=== PATIENT | female | born 1995 | race Caucasian/White ===

== ENCOUNTER 2023-07-13 10:15 | Outpatient (CLI) | payer BC, SELFPAY | END 2023-07-13 10:16 | disposition home or self-care (01) | LOC: NFLDREF 07-15 11:33 | PROVIDERS: Visit Provider Advanced Practice Midwife | DX: Z34.83 Encounter for supervision of other normal pregnancy, third trimester (principal); Z3A.35 35 weeks gestation of pregnancy | CPT/HCPCS: 87081; 87653 ==

== ENCOUNTER 2023-07-20 14:08 | Outpatient (CLI) | payer BC, SELFPAY ==
[2023-07-21 13:02] LABS: Strep B DNA Probe POSITIVE (Negative)
[2023-07-21 13:03] LABS: Strep B Pen/Amox Allergy No
== END 2023-07-20 14:09 | disposition home or self-care (01) ==
LOC: NFLDREF 14:08
PROVIDERS: Visit Provider Advanced Practice Midwife
DX: Z34.93 Encounter for supervision of normal pregnancy, unspecified, third trimester (principal); Z3A.36 36 weeks gestation of pregnancy
CPT/HCPCS: 87081; 87653

== ENCOUNTER 2023-08-07 15:00 | Inpatient (IN) | payer BC, SELFPAY ==
[2023-08-07] VITALS (18 sets, daily range): BP systolic 113–130; BP diastolic 58–76; PULSE 61–86; RESP 16–17; TEMP 36.6–37.4; O2SAT 96; BMI 39.6
[2023-08-07 14:12] LABS: Amnisure Rom* POSITIVE
[2023-08-07] MEDS: AMPICILLIN 2 GM in 0.9 % SODIUM CHLORIDE Mini-bag 100 ML IVPB (15:05)
--- NOTE | 2023-08-07 16:12 | P.LDBA_ITS ---
Subjective History of Present Illness Date Seen: 08/07/23 Narrative: Mackenzie is a 27 yo at 39 3/7 being admitted to Labor and Delivery for PROM of clear fluid. She reports that she started leaking fluid yesterday but is uncertain timing. She said she worked out around 1pm and had some scant amount of discharge then but she thought it might be urine due to working out. She noticed a small gush later on in the afternoon, possibly around 4 pm. She then had some small amount of leaking here and there and thought it may be more urine. She went to bed and this morning had a bit more but never any larger gushes. She sat down to rest this afternoon and her shorts were wet when she stevan t to stand up. She really has not felt any contractions or cramping. Since arrival she has noted her abdomen becoming firm but not painfully. She reports in her previous delivery she didn't really notice contractions until she was almost 8 cm. She has agreed to start ampicillin for GBS + status. Her full history and physical was dictated by CECILIO Kolb CNM on 07/20/2023. Please see this for details. Specific Issues/Plans : Leroy Declines weights, is a trigger for her. H&P done by NICK Kolb on 07/20/2023 1. Hx vacuum assisted delivery -for distress, only pushed 35 mins 2. GBS +, recommend antibiotics in labor Re-swabbed per patient request, GBS + Undecided about declining treatment Covid: Flu: Tdap: Declines 32wk Mental Health: 06/15/2023 [facility] Prenatals: 12/30/22 Labs: O+, Antibody neg, Hgb 12.6,plts 277, rubella immune, RPR neg, Hep B neg, HIV neg, Urine culture ? no growth. Hep C neg? 05/11/23 Hgb 11.7. 1hr gct 121. ? Pap 1-- NIL, HPV neg? LMP 11/04/22. GIL 08/11/23 by LMP.? Tdap declined? 12/30/22 Viability u/s: 8.0 by LMP, 7.3 by u/s. FHR 133. ? Anatomy scan 03/16 at 18.6 weeks. EFW 30%. No abnormalities identified. 3 vessel cord, no previa, normal insertion? Hx of vacuum assisted delivery at 38.1 weeks? OB - Problem Based A/P Additional Plan (1) PROM with onset of labor more than 24 hours following rupture: Status: Acute (2) Group B Streptococcus carrier, antepartum: Status: Acute (3) History of vacuum extraction assisted delivery: Problem details: For distress, only pushed 35 mins Status: Acute Plan ASSESSMENT:? 27 yo at 39.3 weeks gestation?by LMP complicated by:?hx of vacuum delivery Labor type: Spontaneous, early labor? Category 1 FHR pattern.?? Labor complicated by: PROM >24 hours? GBS positive? ? PLAN:? 1. Routine intrapartum cares as ordered. Reviewed recommendation of pitocin due to PROM >24 hours vs expectant management. Strongly recommended Pitocin, however patient prefers to avoid. Plan expectant management for no longer than 36 hours, pt agrees with plan. Encouraged to do labor warm up, nipple stimulation, rupture forebag after 4 hours ampicillin, and/or membrane sweep to encourage labor. Monitor for changes in labor based on patient status, avoiding cervical exams as much as possible. 2. Monitoring per policy, intermittent? 3. Planning unmedicated . Candidate for analgesia of choice if desired.?? 4. Patient encouraged to reposition and ambulate to promote physiologic labor and .? 5. GBS phrophylaxis initiated for GBS positive status. Will treat with antibiotics per protocol. 6. Anticipate ? Delivery/Labor/Induction Plan Plan: expectant management OB Exam Physical Exam Vital signs: Temp Pulse Resp BP Pulse Ox 98.2 F 64 16 122/74 96 08/07/23 13:45 08/07/23 16:10 08/07/23 13:45 08/07/23 16:10 08/07/23 14:03 Narrative: Vitals Reviewed Constitutional:? Alert and oriented x3 HEENT:? Normocephalic, atraumatic Neck:? Supple Lungs:? Clear to auscultation bilaterally Heart:? Regular rate and rhythm, no murmur, rub or gallop Abdomen:? Soft, nontender, and gravid. Vertex by Lux's, confirmed with cervical exam. Extremities:? No edema or erythema Cervix: 4 cm/70%/-2 station/vertex per RN NST: 130 bpm/moderate variability/15x15 accelerations/no decelerations/contractions every 3-5 minutes Detailed Labor and Delivery Exam Patient Gravid: Yes
[2023-08-07] MEDS: AMPICILLIN 1 GM in 0.9 % SODIUM CHLORIDE Mini-bag 100 ML IVPB (19:04)
--- NOTE | 2023-08-07 21:48 | W.PM.OBVAGDE ---
OB Procedure Vag Delivery Mother Details Mother Details: Mackenzie is a 27 year-old, 2, now Para 2, admitted on 08/07/23 at 39 3/7 weeks gestation. : 2 Para: 2 Weeks Gestation: 39.3 Admission Date: 08/07/23 Additional Details Amniotic Membrane Status: SROM (PROM >24 hours) Amniotic Membrane Rupture Date: 08/06/23 Amniotic Membrane Rupture Time: 16:00 (exact time uncertain) Amniotic Membrane Fluid Description: Clear Analgesia/Anesthesia Type: None Waterbirth: No Pitcoin: No Intrapartal Events: ROM >18 Hours Labor Onset: 19:54 Complete: 21:00 Pushin:00 Heart: heart tones during second stage were auscultated by doppler, reassuring during pushing. Difficult to auscultate during due to and maternal position. Delivery Details Delivery Date: 08/07/23 Delivery Time: 21:20 Route of delivery: Infant Gender: Female Infant Viability: Alive; Heart Rate Present Position at Delivery: OA Delivery Details: Mackenzie was admitted earlier this evening with PROM of clear fluid that likely occurred yesterday (08/06) at about 1600. She was having few irregular contractions on arrival. She was encouraged to try position changes, activity, and nipple stim. After many position changes over a 4 hour, she had a larger gush of fluid followed by regular painful contractions. She progressed normally. She began to have an urge to push and started pushing intermittently at peak of contractions at 2100, she was assumed complete at this time. She began more active pushing while standing, then transitioned to hands and knees on the bed at about 2111. of a viable female at 2119 in hands and knees on the bed. Vertex delivered OA. No nuchal cord or shoulder. Body delivered easily and without incident. Just after delivery, a large gush of fluid splashed into the infants face. Infant was stimulated for a weak cry before being passed between mothers legs into her arms. Mother was assisted to her back on the bed as infant was stimulated, dried, and bulb suction for a vigorous cry. Cord was clamped and cut at > 5 minutes. APGARS were 6 at one minute and 8 at five minutes respectively. Mouth was bulb suctioned. Intact placenta with a 3 vessel cord delivered spontaneously at 2134. Fundus firm. Intact perineum. QBL 50 cc. Mother and baby stable; mother plans to breastfeed. Infant weight pending. She received 2 dose of ampicillin for adequate GBS treatment. 1 Minute Interval Total Score: 6 5 Minute Interval Total Score: 8 Additional Details Shoulder Dystocia: No Placenta Delivery Time: 21:35 Placental Delivery Description: Spontaneous Procedure Done: Global Blood Loss: 50 Laceration: None Blood Loss Measurement Type: QBL Bakri Used: No Cord Vessel Description: 3 Vessels Event Summary Status: Mother and were stable after delivery. Disposition: floor
[2023-08-08 03:53] VITALS: BP 105/63; PULSE 65; RESP 16; TEMP 37.1
[2023-08-08 09:00] VITALS: BP 118/74; PULSE 59; RESP 16; TEMP 36.4
--- NOTE | 2023-08-08 09:16 | PM.OBPNVD1 ---
OB - PN:Subj Subjective Time Seen by Provider: 09:17 Date Seen: 08/08/23 Interval history: Mackenzie is a 27 y.o. who was admitted to L & D for PROM. She had an uncomplicated NVD. Patient comments OB post-: no complaints, pain well controlled, tolerating diet and flatus present [place] infant status: doing well feeding status: exclusively Narrative: The patient feels well. The pain is well controlled with current medications. She has no new complaints. She is breast feeding and reports things are going well.? the patient has done well.? Vitals have been stable.? She has remained afebrile.? Has a good appetite, is tolerating a general diet. She is voiding without difficulty.? She is passing gas and has not had a bowel movement.? She is ambulating and denies any dizziness.? Has Small amount of rubra lochia. OB - PN: Obj Exam Physical Exam: Vital signs: Temp Pulse Resp BP Pulse Ox O2 Del Method 98.7 F 65 16 105/63 96 Room Air 08/08/23 03:53 08/08/23 03:53 08/08/23 03:53 08/08/23 03:53 08/07/23 14:03 08/08/23 03:53 Narrative: GENERAL APPEARANCE: normal affect, alert, no distress MOOD: appropriate HEENT: normocephalic, neck supple, full ROM CHEST: Symmetrical chest wall movement. Normal respiratory effort. Clear to auscultation HEART: regular rate and rhythm ABDOMEN: soft, non-tender. Uterine fundus is firm, at Umbilicus, Midline and is appropriate for the stage of recovery. Bowel sounds present. PERINEUM: mild edema of the perineum, there is no lacerations EXTREMITIES: normal and no edema OB - PN: Obj Data Labs Labs: Laboratory Results - last 24 hr 08/07/23 13:51 Membrane Rupture POSITIVE OB - PN: A/P Delivery Assessment and Plan (1) Normal vaginal delivery: Status: Acute (2) Lactating mother: Status: Acute (3) PROM with onset of labor more than 24 hours following rupture: Status: Acute (4) Group B Streptococcus carrier, antepartum: Status: Acute Plan day: 1 Plan: routine care Comments: G 2 P 2 status post uncomplicated NVD 1. Continue route PP cares 2. . May see if desired 3. Anticipate discharge home tomorrow
[2023-08-08 13:00] VITALS: BP 104/63; PULSE 63; RESP 16; TEMP 36.3
[2023-08-08 17:30] VITALS: BP 112/73; PULSE 56; RESP 16; TEMP 36.8
[2023-08-08 19:45] VITALS: BP 108/63; PULSE 73; RESP 16; TEMP 36.8
[2023-08-09 04:00] VITALS: BP 90/60; PULSE 62; RESP 16; TEMP 36.4; O2SAT 95
[2023-08-09 08:11] VITALS: BP 113/69; PULSE 62; RESP 14; TEMP 36.6; O2SAT 97
--- NOTE | 2023-08-09 08:56 | PM.OBDSVD1 ---
DS: Providers Provider Date Seen: 08/09/23 Date of admission: 08/07/23 15:00 Primary care physician: Not a Local Provider Admitting Clinician: Marli Borja CNM Attending Physician on discharge: Marli Borja CNM Date of Discharge: 08/09/23 DS: Diagnosis Discharge Diagnosis (1) Lactating mother: Status: Acute (2) care following vaginal delivery: Status: Acute (3) PROM with onset of labor more than 24 hours following rupture: Status: Acute Exam Narrative: Exam Narrative: GENERAL APPEARANCE:? normal affect, alert, no distress? MOOD:? appropriate? CHEST:? clear to auscultation and percussion? HEART:? regular rate and rhythm? ABDOMEN:? soft, non-tender the uterine fundus is 2 cm Below Umbilicus, Midline and is appropriate for the stage of recovery. ? PERINEUM:? mild edema of the perineum, there is an intact perineum that is healing well.? EXTREMITIES:? normal and no edema? Patient has no complaints? No active bleeding?? Doing well? She is requesting discharge home.? Const: Vital Signs, click to edit/add: Vital Signs - 24 hr 08/08/23 09:00 08/08/23 13:00 08/08/23 17:30 Temperature 97.6 F 97.4 F L 98.3 F Pulse Rate [Blood Pressure Cuff] 59 L 63 56 L Respiratory Rate 16 16 16 Blood Pressure [Ri ght Arm] 118/74 104/63 112/73 Pulse Oximetry Oxygen Delivery Me thod Room Air Room Air Room Air 08/08/23 19:45 08/09/23 04:00 08/09/23 08:11 Temperature 98.2 F 97.5 F L 97.8 F Pulse Rate [Blood Pressure Cuff] 73 62 62 Respiratory Rate 16 16 14 Blood Pressure [Ri ght Arm] 108/63 90/60 113/69 Pulse Oximetry 95 97 Oxygen Delivery Me thod Room Air Room Air Room Air Documenting provider has reviewed patient's vital signs: yes OB - DS: Summary Hospital Course Hospital Course: The patient is a 27 year old G 2 P 2 at 39.3 weeks gestation that was admitted to the Center on 08/07/23 for PROM. She had a vaginal delivery complicated by ROM greater than 24hours without signs of infection. She was adequatly treated with antibiotics for positive GBS status. She delivered a viable female . She is breast feeding. She feels that it is going well but is worried about a tongue or lip tie as her first had this which made latching painful. She is planning to see before discharge today. the patient has done well. She is passing gas but has not had a bowel movement. She is planning condoms for PP control. Peripartum Data Infant delivery method: Vaginal Laceration description: None complications: none Sachse Infant Gender: Female Discharge Plan: Home Status at Discharge Functional status at discharge: independent ambulation Overall status at discharge: patient is progressing back to baseline Time Spent with Patient Time attestation: Total time spent providing and/or coordinating discharge services: Discharge Plan Discharge Disposition: Home, Self-Care Date of Admission: 08/07/23 15:00 Attending Provider on Discharge: Naye Andersen Primary Care Provider: Provider,Not a Local Condition: Stable Anticipated Discharge Date/Time: 08/09/23 10:00 Discharge Medications: New docusate sodium 100 mg Capsule 100 mg PO DAILY Qty: 60 0RF Rx Instructions: Take 1-2 tablets daily as needed for constipation. ibuprofen 600 mg Tablet 600 mg PO Q6H PRNQty: 30 0RF Continued acetaminophen 500 mg capsule 500 mg PO Q6H PRN One A Day Women's DHA 28 mg iron- 800 mcg combo pack 1 pkg PO DAILY cholecalciferol (vitamin D3) 25 mcg (1,000 unit) capsule 25 mcg PO QDAY Discharge Orders: Discharge Order (Routine); Ordered 08/09/23 Ordered By: Naye Andersen Patient Education: OB Vaginal/Breast Feeding Additional Instructions: Discharge instructions were reviewed with the patient including signs and symptoms of infection and home going medications.? Lifting Restrictions: 20 pounds for 6? weeks? ?? Do not drive while taking narcotic pain meds.? Off Work or School for 6 weeks.? ?? Symptoms to report to doctor:? -Bleeding that saturates more than one pad per hour? -Passing clots larger than the size of a golf ball? -Pain not relieved by prescribed medication? -Fever above 100.4 degrees Fahrenheit? -A foul vaginal odor? -Difficulty in emotions, mood and functions? -Thoughts of hurting yourself and/or ? -Painful, reddened area in your breast? -Any drainage, redness or tenderness in your IV/epidural site? -Severe headache that doesn't improve after taking medications? -Changes in vision, including temporary loss of vision, blurred vision, and/or light sensitivity? -Upper abdominal pain (usually under ribs on the right side)? -Decrease in urination or painful, frequent urinating? -Chest pain? -Shortness of breath? -Tenderness or pain with redness and/swelling in the calf(s) of your leg? ?? Follow Up in clinic in 2 and 6 weeks.? ?? consultation services are available to all mothers and babies for the first year after delivery.? To make an appointment, please call [phone].? Activity Level: Activity as Tolerated Discharge Diet: Regular Follow Up Appointments: [facility] [Provider Group] Provider,Not a Local [Primary Care Provider] - Forms: MyHealth Info Instructions
== END 2023-08-09 11:00 | disposition home or self-care (01) | DRG 560 ==
LOC: OB OUT 15:01 → OB 15:02
PROVIDERS: Admitting Provider Advanced Practice Midwife; Visit Provider Advanced Practice Midwife
DX: O42.12 Full-term premature rupture of membranes, onset of labor more than 24 hours following rupture (principal); O99.824 Streptococcus B carrier state complicating childbirth; Z3A.39 39 weeks gestation of pregnancy; Z37.0 Single live birth
CPT/HCPCS: 84112; J0290

== ENCOUNTER 2024-11-01 13:37 | Outpatient (CLI) | payer BC, SELFPAY ==
--- NOTE | 2024-11-01 13:45 | CRLHL7_ITS ---
For Patients: As a result of the Century Cures Act, medical imaging exams and procedure reports are released immediately into your electronic medical record. You may view this report before your referring provider. If you have questions, please contact your health care provider. INDICATION: Dating and viability. LMP 08/13/2024. COMPARISON: None. TECHNIQUE: Real-time paniagua-scale imaging of the pelvis was performed. FINDINGS: Sonographic imaging demonstrates a single living intrauterine gestation. The embryo has a regular cardiac rate measuring 168 beats per minute. The embryo`s crown-rump length measures 2.9 cm which corresponds to a gestational age of 9 weeks 5 days with sonographic due date 06/01/2025. There is a normal-appearing yolk sac. The placenta has not yet developed. No evidence of a perigestational hemorrhage. The right ovary measures 4.9 x 2.7 x 2.5 cm and the left ovary measures 4.1 x 1.6 x 2.6 cm. Corpus luteal cyst in the right ovary. No free fluid in the pelvic cul-de-sac. IMPRESSION: 1. Single living intrauterine gestation corresponding to an ultrasound gestational age of 9 weeks 5 days with sonographic due date 06/01/2025. 2. The clinical gestational age by LMP is 11 weeks 3 days. Dictated by Jolanta Tariq MD @ 11/02/2024 2:21:40 AM (Electronically Signed)
== END 2024-11-01 13:38 | disposition home or self-care (01) ==
LOC: US 13:38
PROVIDERS: Visit Provider Advanced Practice Midwife
DX: Z34.91 Encounter for supervision of normal pregnancy, unspecified, first trimester (principal); O34.81 Maternal care for other abnormalities of pelvic organs, first trimester; N83.11 Corpus luteum cyst of right ovary; Z3A.09 9 weeks gestation of pregnancy
CPT/HCPCS: 76801; 83021; 86592; 86703; 86704; 86706; 86762; 86787; 86803; 86850; 86900; 86901; 87086; 87340

== ENCOUNTER 2025-01-10 12:39 | Outpatient (CLI) | payer BC, SELFPAY ==
--- NOTE | 2025-01-10 13:00 | CRLHL7_ITS ---
For Patients: As a result of the Century Cures Act, medical imaging exams and procedure reports are released immediately into your electronic medical record. You may view this report before your referring provider. If you have questions, please contact your health care provider. OBSTETRICAL ULTRASOUND ??? ANATOMY SURVEY, 01/10/2025 INDICATION: anatomy survey. CLINICAL HISTORY: GIL by ultrasound: 06/01/2025 Gestational age: 19 weeks 5 days TECHNIQUE: Real-time paniagua-scale imaging of the fetus was performed transabdominal. PREVIOUS ULTRASOUND: 11/01/2024 FINDINGS: position: Multiple positions Cervix: Visualized Technique: Transabdominal Length of closed cervix: 3.7 cm Placenta position: Anterior Placenta tip to internal os: 9.3 cm Umbilical cord: 3-vessel cord Placental insertion: Marginal (within 2 cm of placenta edge) Amniotic fluid: 4.7 cm SDP (greater than/equal to 2 to less than 8 cm) ANATOMY SURVEY: Observed Structures Cerebellum: Yes; 2.1 cm, 21 weeks 2 days Cisterna magna: Yes; 5.9 mm Nuchal fold: Yes; 3.2 mm Lateral ventricle: Yes; 7.2 mm CSP: Yes Midline falx: Yes Choroid plexus: Yes Spine: Yes Stomach: Yes Abdominal cord insert: Yes Urinary bladder: Yes Kidneys: Yes Diaphragm: Yes Nose/lips: Yes Orbital view: Yes Profile: Yes Upper extremities: Yes Lower extremities: Yes Hands: Yes Feet: Yes 4-chamber heart: Yes LVOT: Yes RVOT: Yes 3VV: Yes 3VTV: Yes BIOMETRY BPD: 4.6 cm, 19 weeks 5 days, 51.9% HC: 17.6 cm, 20 weeks 0 days, 59.0% AC: 16.0 cm, 21 weeks 1 day, 86.0% FL: 3.1 cm, 19 weeks 4 days, 37.4% FL/AC: 19.30% HC/AC ratio: 1.10 heart rate: 145 bpm age by this ultrasound: 20 weeks 2 days GIL by this ultrasound: 05/28/2025 Estimated weight: 348.24 grams (0 pounds 12 ounces) Percentile by GIL: 81.0% IMPRESSION: 1) Concordance of clinical and sonographic dating. 2) Normal anatomic survey. 3) Marginal placental cord insertion located 1.7 cm from the internal cervical os. 4) Incidental subchorionic blood products noted. PETER CORCORAN M.D. Diagnostic Radiologist [email or web address] Transcribed: 2:[address]/Dictated by: Peter Corcoran MD @ 01/10/2025 2:26:00 PM (Electronically Signed)
== END 2025-01-10 12:40 | disposition home or self-care (01) ==
LOC: US 12:40
PROVIDERS: Visit Provider Advanced Practice Midwife
DX: Z34.92 Encounter for supervision of normal pregnancy, unspecified, second trimester (principal); O20.9 Hemorrhage in early pregnancy, unspecified; Z3A.19 19 weeks gestation of pregnancy
CPT/HCPCS: 76805

== ENCOUNTER 2025-03-07 14:07 | Outpatient (CLI) | payer BC, SELFPAY | END 2025-03-07 14:08 | disposition home or self-care (01) | LOC: NFLDREF 03-14 03:08 | PROVIDERS: Visit Provider Advanced Practice Midwife | DX: Z34.83 Encounter for supervision of other normal pregnancy, third trimester (principal) | CPT/HCPCS: 86592 ==

== ENCOUNTER 2025-04-30 11:08 | Outpatient (CLI) | payer BC, SELFPAY | END 2025-04-30 11:09 | disposition home or self-care (01) | LOC: NFLDREF 05-03 03:16 | PROVIDERS: Visit Provider Advanced Practice Midwife | DX: Z34.93 Encounter for supervision of normal pregnancy, unspecified, third trimester (principal); Z3A.35 35 weeks gestation of pregnancy | CPT/HCPCS: 87081; 87653 ==

== ENCOUNTER 2025-05-28 19:36 | Inpatient (IN) | payer BC, SELFPAY ==
[2025-05-28] VITALS (12 sets, daily range): BP systolic 108–127; BP diastolic 55–67; PULSE 53–73; RESP 16–18; TEMP 36.6–36.9; O2SAT 96–97; BMI 35.6
[2025-05-28] MEDS: LACTATED RINGERS 1000 ML 1,000 ML 125 ML IV (11:06)
[2025-05-28] MEDS: AMPICILLIN 2 GM in 0.9 % SODIUM CHLORIDE Mini-bag 100 ML IVPB (11:07)
--- NOTE | 2025-05-28 12:30 | P.LDBA_ITS ---
Subjective History of Present Illness Date Seen: 05/28/25 Narrative: Mackenzie is being admitted to Labor and Delivery for elective IOL. She is a 29 year old at 39.3 weeks gestation. Her full history and physical was dictated by Eusebio Stark on 05/14/25. Please see this for details. She was seen in the clinic and was found to be 5cm with a history of precipitous labors. She was given the option to stay for an IOL as she was nervous to go home given her history. Specific Issues/Plans Partner: Leroy? H&P:? 05/14/25, [place]? # Hx of vacuum with first delivery?? # Marginal cord, 1.7 cm from edge (no testing when >1cm from edge) # GBS positive Ok with antibiotics, if too late may desire to not Imaging:??? Anatomy US 01/10/2025: Percentile by GIL: 81.0%, 1)Concordance of clinical and sonographic dating. 2)Normal anatomic survey. 3)Marginal placental cord insertion located 1.7 cm from the internal cervical os. 4)Incidental subchorionic blood products noted. ? Vaccinations:?? COVID: declines Flu: NA Tdap: []? RSV: NA 32 week mental health: 05/14/25 Last pap:? 2020, needs at 6 wk PP? OB - Problem Based A/P Additional Plan (1) Encounter for induction of labor: Status: Acute (2) Marginal insertion of umbilical cord affecting management of mother: Status: Acute Plan ASSESSMENT:? 29 at 39.3 weeks gestation? complicated by:?marginal cord insertion, GBS positive, hx vacuum delivery (1st delivery) Labor type: Induced, not yet in labor? Category 1 FHR pattern.?? Labor complicated by: none? GBS positive? ? PLAN:? 1. GBS prophylaxis initiated for GBS positive status. Will treat with antibiotics per protocol. 2. Will wait to initiate IOL until post antibiotic infusion >2-4 hours. Reviewed options. Desires AROM if possible. Will evaluate at that time. 3. Monitoring per policy, intermittent? 4. Planning unmedicated . Candidate for analgesia of choice.?? 5. Patient encouraged to reposition and ambulate to promote physiologic labor and .? 6. Anticipate ? Delivery/Labor/Induction Plan Plan: induction OB Result Labs Blood Type: O (+) positive Rubella: immune RPR/VDLR: nonreactive GBS Status: positive HBsAG: negative OB Exam Physical Exam Vital signs: Temp Pulse Resp BP Pulse Ox 98.3 F 53 L 18 113/61 97 05/28/25 10:28 05/28/25 10:27 05/28/25 10:28 05/28/25 10:27 05/28/25 10:24 Narrative: Psychiatric:? Alert and oriented x3? HEENT:? Normocephalic, atraumatic? Neck:? Supple without adenopathy or thyromegaly? Lungs:? Clear to auscultation bilaterally? Heart:? Regular rate and rhythm, no murmur, rub or gallop? Abdomen:? Soft, nontender, and gravid? Extremities:? No edema or erythema? Detailed Labor and Delivery Exam Patient Gravid: yes Dilation (cm): 5 (per clinic cervical check) Effacement (%): 50 Cervix position: posterior Contraction Frequency: occaional, reports only feeling ctx with ambulation Contraction intensity: Mild Fetus (Single) Station: -2 Amniotic Membrane Status: intact Heart Rate Baseline: 125 Monitor Accelerations: Present Monitor Decelerations: None Halfway Variability: Moderate (6-25)
[2025-05-28] MEDS: AMPICILLIN 1 GM in 0.9 % SODIUM CHLORIDE Mini-bag 100 ML IVPB ×2 (15:06→18:59)
--- NOTE | 2025-05-28 15:37 | P.OBPN_ITS ---
Subjective Date Seen: 05/28/25 Narrative: Mackenzie is currently receiving her second dose of antibiotics. She is starting to feel more uncomfortable contractions but denies leaking fluid of regular/painful contractions. SVE unchanged from clinic. She would like to proceed the IOL with AROM. Discussed risks/benefits and questions answered. AROM performed without difficulty with a moderate amount of clear fluid and bloody show. Objective Vital Signs: Last Vital Signs Temp 98 F 05/28/25 14:23 Pulse 62 05/28/25 14:23 Resp 16 05/28/25 14:23 BP 114/67 05/28/25 14:23 Pulse Ox 97 05/28/25 10:24 Pelvic Exam Dilation (cm): 5 Effacement (%): 60 Station: -2 Contractions Monitor mode: External Contraction Frequency: 2-4 Contraction pattern: Irregular Contraction intensity: Mild Assessment Assessment: induction ongoing Station: -2 Amniotic Membrane Status: AROM Status: Category l Heart Rate Baseline: 130 Skilled Nursing Variability: Moderate (6-25) Monitor Accelerations: Present Monitor Decelerations: None Plan Plan: ASSESSMENT:? 29 at 39.3 weeks gestation? complicated by:?marginal cord insertion, GBS positive, hx vacuum delivery (1st delivery) Labor type: Induced, early labor Category 1 FHR pattern.?? Labor complicated by: none? GBS positive? ? PLAN:? 1. GBS prophylaxis antibiotics continued for GBS positive status per protocol. Second dose infusing. 2. AROM performed for labor induction. Moderate amount of clear fluid. 3. Monitoring per policy, intermittent? 4. Planning unmedicated . Candidate for analgesia of choice.?? 5. Patient encouraged to reposition and ambulate to promote physiologic labor and .? 6. Anticipate ?
--- NOTE | 2025-05-28 21:24 | PM.OBPNL ---
Subjective Date Seen: 05/28/25 Narrative: Mackenzie has been continuing to contract and they have been slowly increasing in intensity. She is now having to pause with them which is new for her. She has continued to change positions frequently, do the labor warm up, ambulate, and pump. Her SVE was changed to 6.5/80/-2. We discussed adding Pitocin titration however that it is not necessary at this time given she is making cervical change. She is somewhat frustrated as she has a history of precipitous labors. She is undecided at this time if she wants to augment. We discussed expectant management at this time but if she chooses to augment with Pitocin at any time that would be appropriate as long as the FHR tracing is appropriate. She is agreeable to this plan and questions were answered. Objective Vital Signs: Last Vital Signs Temp 98.3 F 05/28/25 20:34 Pulse 62 05/28/25 20:34 Resp 18 05/28/25 20:34 BP 111/63 05/28/25 20:34 Pulse Ox 96 05/28/25 20:34 Pelvic Exam Dilation (cm): 6.5 Effacement (%): 80 Station: -2 Contractions Monitor mode: External Contraction Frequency: 2-4 Contraction pattern: Regular Contraction intensity: Moderate Assessment Assessment: induction ongoing and early labor Station: -2 Amniotic Membrane Status: AROM Status: Category l Heart Rate Baseline: 130 Tools Programmer Variability: Moderate (6-25) Monitor Accelerations: Present Monitor Decelerations: None Plan Plan: ASSESSMENT:? 29 at 39.3 weeks gestation? complicated by:?marginal cord insertion, GBS positive, hx vacuum delivery (1st delivery) Labor type: Induced, active labor by definition of >6cm Intermittent monitoring WNL.?? Labor complicated by: none? GBS positive? ? PLAN:? 1. Continue with GBS prophylaxis antibiotics for GBS positive status per protocol. 2. Monitoring per policy, intermittent 3. Planning unmedicated . Candidate for analgesia of choice.?? 4. Patient encouraged to reposition and ambulate to promote physiologic labor and .? 5. Discussed Pitocin augmentation. Declines at this time. Expectant management. 6. Anticipate ?
[2025-05-29] VITALS (13 sets, daily range): BP systolic 93–125; BP diastolic 55–68; PULSE 59–77; RESP 16; TEMP 36.6–37.1; O2SAT 95–97
--- NOTE | 2025-05-29 00:25 | W.PM.OBVAGDE ---
OB Procedure Vag Delivery Mother Details Mother Details: The patient is a 29 year-old, 3, Para 2, admitted on 05/28/25 at 39.3Days gestation. : 3 Para: 3 Weeks Gestation: 39.3 Admission Date: 05/28/25 Additional Details Amniotic Membrane Status: AROM Amniotic Membrane Rupture Date: 05/28/25 Amniotic Membrane Rupture Time: 15:26 Amniotic Membrane Fluid Description: Clear Analgesia/Anesthesia Type: None Waterbirth: No Pitcoin: No Intrapartal Events: Labor Induction and Precipitous Labor <3 Hrs Induction Method: AROM Labor Onset: 21:05 Complete: 23:20 Pushin:21 Heart: heart tones during second stage were category 1 when they were traced but no tracing obtained in the last few minutes of pushing due to maternal position and rapid descent. Delivery Details Delivery Date: 05/28/25 Delivery Time: 23:32 Route of delivery: Infant Gender: Male Viability: Alive; Heart Rate Present Position at Delivery: OA Delivery Details: Patient was admitted for elective IOL and progressed normally with AROM for induction. AROM noted at 1526 with clear fluid. Patient was complete at 2320 and pushing at 2321. of a viable male. I was unable to attend the delivery as I was in another delivery so delivery was performed by ED provider. See his note for delivery. I was in the room after delivery of the baby and the cord was clamped and cut at > 5 minutes. APGARS were 8 at one minute and 8 at five minutes respectively. Mouth was bulb suctioned. Intact placenta with a 3 vessel cord delivered spontaneously at 2345 with a marginal cord insertion noted. Fundus firm. Periurethral laceration identified that was well approximated and not bleeding. After discussions and informed consent she chose not to have it repaired. Encouraged her to stay well hydrated and use her bryce bottle with urination to decrease discomfort. QBL 150 cc. Mother and baby stable; mother plans to breastfeed. Infant weight 9lb 2oz. 1 Minute Interval Total Score: 8 5 Minute Interval Total Score: 8 Additional Details Shoulder Dystocia: No Placenta Delivery Time: 23:45 Placental Delivery Description: Spontaneous Procedure Done: Global Blood Loss: 150 Laceration: Periurethral - 2nd Degree Episiotomy Description: None Blood Loss Measurement Type: QBL Bakri Used: No Sponge/Need Count Correct: Yes Cord Vessel Description: 3 Vessels Event Summary Status: Mother and were stable after delivery. Disposition: floor
[2025-05-29] MEDS: DOCUSATE SODIUM 100 MG CAPSULE PO (11:08)
--- NOTE | 2025-05-29 11:13 | P.OBPN_ITS ---
OB - PN:Subj Subjective Time Seen by Provider: 11:45 Date Seen: 05/29/25 Narrative: Mackenzie is a 29 y.o. G 3 P 3 who was admitted to L & D for IOL for advanced cervical dilation. ?She had a NVD that was uncomplicated. The patient feels well. ?The pain is well controlled with current medications. ?She has no new complaints. ?She is breast feeding and reports things are going well. the patient has done well.? Vitals have been stable.? She has remained a febrile.? Has a good appetite, is tolerating a general diet. ?She is voiding without difficulty.? She is passing gas and has not had a bowel movement.? She is ambulating and denies any dizziness.? Has small amount of rubra lochia. Problems: none OB - PN: Obj Exam Physical Exam: Vital signs: Temp Pulse Resp BP Pulse Ox O2 Del Method 98.8 F 74 16 100/64 97 Room Air 05/29/25 03:15 05/29/25 08:23 05/29/25 08:23 05/29/25 08:23 05/29/25 08:23 05/29/25 08:23 Narrative: GENERAL APPEARANCE:? normal affect, alert, no distress MOOD:? appropriate CHEST:? clear to auscultation HEART:? regular rate and rhythm ABDOMEN:? soft, non-tender the uterine fundus is at Umbilicus, Midline and is appropriate for the stage of recovery. PERINEUM:? mild edema of the perineum, periurethral laceration healing well. EXTREMITIES:? normal and no edema OB - PN: A/P Delivery Assessment and Plan (1) care and examination immediately after delivery: Status: Acute (2) Lactating mother: Status: Acute Plan day: 1 Plan: routine care Comments: , may see if needed? Hgb 12.1. ? Anticipate discharge tomorrow
[2025-05-29] MEDS: IBUPROFEN 600 MG TABLET PO (17:00)
[2025-05-30 07:30] VITALS: BP 97/62; PULSE 67; RESP 16; TEMP 36.6; O2SAT 96
--- NOTE | 2025-05-30 08:05 | PM.OBDSVD1 ---
DS: Providers Provider Date Seen: 05/30/25 Date of admission: 05/28/25 19:36 Primary care physician: Not a Local Provider Admitting Clinician: Naye Andersen CNM Attending Physician on discharge: Tye Whittington CNM Date of Discharge: 05/30/25 DS: Diagnosis Discharge Diagnosis (1) Lactating mother: Status: Acute (2) care and examination immediately after delivery: Status: Acute Exam Narrative: Exam Narrative: VSS, afebrile GENERAL APPEARANCE: ?normal affect, alert, no distress MOOD: ?appropriate HEENT: normocephalic, neck supple, full ROM CHEST: ?Symmetrical chest wall movement. ?Normal respiratory effort. ?Clear to auscultation HEART: ?regular rate and rhythm ABDOMEN: ?soft, non-tender. Uterine fundus is firm, at Umbilicus, Midline and is appropriate for the stage of recovery. ?Bowel sounds present. PERINEUM: ?mild edema of the perineum, there is a periurethral laceration that is healing well. EXTREMITIES: ?normal and no edema Const: Vital Signs, click to edit/add: Vital Signs - 24 hr 05/29/25 08:23 05/29/25 13:06 05/29/25 16:54 Temperature Pulse Rate [Blood Pressure Cuff] 74 74 68 Respiratory Rate 16 16 16 Blood Pressure [Ri ght Arm] 100/64 95/65 101/63 Pulse Oximetry 97 97 97 Oxygen Delivery Me thod Room Air Room Air Room Air 05/29/25 20:10 05/29/25 23:51 05/30/25 07:30 Temperature 97.8 F 97.8 F Pulse Rate [Blood Pressure Cuff] 62 63 67 Respiratory Rate 16 16 16 Blood Pressure [Ri ght Arm] 110/66 93/55 L 97/62 Pulse Oximetry 95 96 Oxygen Delivery Me thod Room Air Room Air Room Air Documenting provider has reviewed patient's vital signs: yes OB - DS: Summary Hospital Course Hospital Course: Mackenzie is a 29 y.o. who was admitted to L & D for induction of labor . ?She had an uncomplicated NVD.?The patient feels well. ?The pain is well controlled with current medications. ?She has no new complaints. ?She is breast feeding and reports things are going ok, has been using a nipple shield.? the patient has done well.? Vitals have been stable.? She has remained afebrile.? Has a good appetite, is tolerating a general diet. ?She is voiding without difficulty.? She is passing gas and has not had a bowel movement.? She is ambulating and denies any dizziness.? Has Small amount of rubra lochia. ?She is undecided on her plan for prevention. Peripartum Data Infant delivery method: Vaginal Laceration description: Periurethral - 2nd Degree complications: none Brock Infant Gender: Male Discharge Plan: Home Status at Discharge Functional status at discharge: independent ambulation Overall status at discharge: patient is progressing back to baseline Time Spent with Patient Time attestation: Total time spent providing and/or coordinating discharge services: Time spent: Less than 30 minutes Discharge Plan Discharge Disposition: Home, Self-Care Date of Admission: 05/28/25 19:36 Attending Provider on Discharge: Tye Whittington Primary Care Provider: Provider,Not a Local Condition: Stable Anticipated Discharge Date/Time: 05/30/25 12:00 Discharge Medications: New acetaminophen 500 mg Tablet 1,000 mg PO Q6H PRNQty: 0 0RF docusate sodium 100 mg Capsule 100 mg PO DAILY Qty: 60 0RF ibuprofen 600 mg Tablet 600 mg PO Q6H PRNQty: 90 0RF Continued PNV 119-iron fum-folic acid 29 mg iron- 1 mg tablet 1 tab PO DAILY cholecalciferol (vitamin D3) 25 mcg (1,000 unit) capsule 25 mcg PO QDAY biotin 1 mg capsule 2 mg PO QDAY Discontinued acetaminophen 500 mg capsule 500 mg PO Q6H PRN Discharge Orders: Discharge Order (Routine); Ordered 05/30/25 Ordered By: Tye Whittington Patient Education: OB Over the Counter Medication Information, OB Vaginal/Breast Feeding Additional Instructions: Discharge instructions were reviewed with the patient including signs and symptoms of infection and home going medications Nothing vaginally for 6 weeks: no tampons or intercourse) Off Work or School for 6 weeks 2-week visit: discuss infant feeding concerns, review control options and screen for anxiety/depression. 6-week visit for an annual exam. consultation services are available to all mothers and babies for the first year after delivery.? To make an appointment, please call [phone]. Activity Level: Activity as Tolerated Discharge Diet: Regular Follow Up Appointments: [facility] [Provider Group] Forms: [employer] Info Instructions
--- NOTE | 2025-06-01 14:19 | ED_ITS ---
HPI - General Adult Related Data Home Medications ?Medication ?Instructions ?Recorded ?Confirmed cholecalciferol (vitamin D3) 25 25 mcg PO QDAY 3 05/29/25 mcg (1,000 unit) capsule biotin 1 mg capsule 2 mg PO QDAY 11/01/24 vitamins no.119-iron 1 tab PO DAILY 11/29/24 05/29/25 fumarate 29 mg-folic acid 1 mg tablet Previous Rx's ?Medication ?Instructions ?Recorded acetaminophen 500 mg tablet 1,000 mg (2 x 500 mg) PO Q 6H PRN 05/30/25 #0 tabs docusate sodium 100 mg capsule 100 mg PO DAILY #60 cap s 05/30/25 ibuprofen 600 mg tablet 600 mg PO Q6H PRN #90 tabs 0 05/30/25 Allergies Allergy/AdvReac Type Severity Reaction Status Date / Time No Known Drug Allergies Allergy Verified 05/28/25 22:19 [facility] Medical History Normal vaginal delivery ?O80 - Encounter for full-term uncomplicated delivery (ICD-10) PROM with onset of labor more than 24 hours following rupture ?O42.10 - Premature rupture of membranes, onset of labor more than 24 hours following rupture, unspecified weeks of gestation (ICD-10) Group B Streptococcus carrier, antepartum ?O99.820 - Streptococcus B carrier state complicating (ICD-10) Hx of migraines ?Z86.69 - Personal history of other diseases of the nervous system and sense organs (ICD-10) Surgical History History of vacuum extraction assisted delivery ?Z87.59 - Personal history of other complications of , childbirth and the puerperium (ICD-10) History of wisdom tooth extraction, class I edentulism ?K08.491 - Partial loss of teeth due to other specified cause, class I (ICD- 10) Family History Maternal Grandmother Breast cancer Social History Narrative: SOCIAL? ? 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 ? Partner: Leroy? work underground [employer]? Lives with: Segundo Harper age 3.5 and Sherine ?15 months Pets: dogs ? Abuse: Denies past Safe at home with current partner ? ? Special Diet: Denies? ? Ok with a blood transfusion: yes? Culture or yazdanism beliefs: denies? RISK FACTORS? ? Exercise Times/wk: Crossfit 6 times a week? Depression/Anxiety: denies? Previous Treatments NA ? Therapy NA DARVIN:1 PHQ 9: 1? ? Seat Belt Use: Routinely ? Smoking: Denies past/present? Alcohol/day: Denies while , does not drink ? ? Caffeine: 100mg daily preworkout Drug Use: Denies past/present? ? What is your current living situation?: I presently have a place to live Problems where you live: no known problems In the past 12 months, utilities in danger of being shut off: no In past 12 months, lack of transportation kept you from medical appts, meetings, work, or getting things needed for daily living: no In the past 12 mos, have been you worried that your food would run out before you had money to buy more?: never true In the past 12 mos, the food you bought just didn't last and you didn't have money to buy more?: never true Smoking Status: Never smoker How often does anyone, including family, friends and others, physically hurt you : never How often does anyone, including family, friends and others, insult or talk down to you: never How often does anyone, including family, friends and others, threaten you with harm: never How often does anyone, including family, friends and others, scream or curse at you: never Course Vital Signs Vital signs: Initial Vital Signs Pulse Oximetry 97 05/28/25 10:24 Vital Signs Pulse Oximetry 97 05/28/25 10:24 Temperature 97.8 F 05/30/25 07:30 Pulse Rate 67 05/30/25 07:30 Respiratory Rate 16 05/30/25 07:30 Blood Pressure 97/62 05/30/25 07:30 Pulse Oximetry 96 05/30/25 07:30 Oxygen Delivery Method Room Air 05/30/25 07:30 Medications Administered Medications: Discontinued Medications Generic Name Dose Route Start Last Admin Trade Name Freq PRN Reason Stop Dose Admin Docusate Sodium 100 mg 05/29/25 09:00 05/29/25 11:08 Docusate Sodium 100 Mg Capsule PO 100 mg DAILY BIJU Administration Lactated Ringer's 1,000 mls @ 125 mls/hr 05/28/25 10:15 05/29/25 17:26 Lactated Ringers 1000 Ml IV Not Given .Q8H BIJU Ampicillin Sodium 1 gm/ Sodium 100 mls @ 200 mls/hr 05/28/25 14:45 05/29/25 17:24 Chloride IVPB Not Given Q4H BIJU Ampicillin Sodium 2 gm/ Sodium 100 mls @ 200 mls/hr 05/28/25 10:44 05/28/25 11:40 Chloride IVPB 05/28/25 10:45 Infused ONCE ONE Infusion Ibuprofen 600 mg 05/29/25 00:24 05/29/25 17:00 Ibuprofen 600 Mg Tablet PO 600 mg Q6H PRN Administration Medical Decision Making Lab Data Labs: Lab Results 05/28/25 Range/Units 10:50 RPR Screen Non Reactive (Non Reactive) Discharge Plan Discharge Disposition: Home, Self-Care Date of Admission: 05/28/25 19:36 Attending Provider on Discharge: Tye Whittington Primary Care Provider: Provider,Not a Local Condition: Stable Anticipated Discharge Date/Time: 05/30/25 12:00 Discharge Medications: New acetaminophen 500 mg Tablet 1,000 mg PO Q6H PRNQty: 0 0RF docusate sodium 100 mg Capsule 100 mg PO DAILY Qty: 60 0RF ibuprofen 600 mg Tablet 600 mg PO Q6H PRNQty: 90 0RF Continued PNV 119-iron fum-folic acid 29 mg iron- 1 mg tablet 1 tab PO DAILY cholecalciferol (vitamin D3) 25 mcg (1,000 unit) capsule 25 mcg PO QDAY biotin 1 mg capsule 2 mg PO QDAY Discontinued acetaminophen 500 mg capsule 500 mg PO Q6H PRN Discharge Orders: Discharge Order (Routine); Ordered 05/30/25 Ordered By: Tye Whittington Consulting provider completed their portion of the discharge: Yes Patient Education: OB Over the Counter Medication Information, OB Vaginal/Breast Feeding Additional Instructions: Discharge instructions were reviewed with the patient including signs and symptoms of infection and home going medications Nothing vaginally for 6 weeks: no tampons or intercourse) Off Work or School for 6 weeks 2-week visit: discuss infant feeding concerns, review control options and screen for anxiety/depression. 6-week visit for an annual exam. consultation services are available to all mothers and babies for the first year after delivery.? To make an appointment, please call [phone]. Activity Level: Activity as Tolerated Discharge Diet: Regular Follow Up Appointments: [facility] [Provider Group] Forms: [employer] Info Instructions Procedures Vaginal Delivery Pre procedure diagnosis: Full-term gestation with no complications. Post procedure diagnosis: Vaginal delivery of a baby boy. Name of person performing procedure: Tu Payan Estimated blood loss (if any): less than 5mls Complications: none Patient Tolerated Procedure: well Additional Comments: This patient was at the time I was called from the emergency department to assist in delivery as there was no other distribution accounting clerk or OBGYN available at the time. I arrived at the room at which time the patient was very soon to deliver her child. She preferred to be on her hands and knees at this time. While in this position she did deliver the head of the child but I was unable to release the shoulders from her pubic bone in this position. We had the patient roll over onto her back and her legs were placed in make Mayer position. I was able to release the shoulder from the pubic bone and deliver the baby boy. After stimulation and drying very quickly the baby was responding and vigorous. There were no other complications. A distribution accounting clerk was arriving soon so I did not attend to further needs such as clamping the cord and removal of the placenta. presentation: vertex
== END 2025-05-30 10:45 | disposition home or self-care (01) | DRG 560 ==
LOC: OB OUT 19:36 → OB 19:36
PROVIDERS: Admitting Provider Advanced Practice Midwife; PCP Emergency Medicine Emergency Medical Services; Referring Provider Advanced Practice Midwife; Visit Provider Advanced Practice Midwife
DX: O43.193 Other malformation of placenta, third trimester (principal); O62.3 Precipitate labor; O71.82 Other specified trauma to perineum and vulva; O99.824 Streptococcus B carrier state complicating childbirth; Z3A.39 39 weeks gestation of pregnancy; Z37.0 Single live birth
CPT/HCPCS: 36415; 86592; 99284; G0463; A9270; J0290; J7120

== ENCOUNTER 2025-07-09 11:46 | Outpatient (CLI) | payer BC, SELFPAY ==
[2025-07-12 04:47] LABS: HPV Source Cervical
[2025-07-12 09:46] LABS: Pap Test Digital Imaging Done
== END 2025-07-09 11:47 | disposition home or self-care (01) ==
PROVIDERS: Visit Provider Advanced Practice Midwife
DX: Z12.4 Encounter for screening for malignant neoplasm of cervix (principal)
CPT/HCPCS: 87624; 87625; 88141; 88142; 88175